=== PATIENT | male | born 1980 | race Caucasian/White ===

== ENCOUNTER 2017-08-11 06:37 | Day surgery (SDC) | payer OTHER ==
[~2017-08-11 06:37] MED LIST: Buffered Lidocaine 0.9% SYRIN* 5 ML/SYR SYRINGE INTRADERM ONE
[2017-08-11] MEDS ORDERED: Clindamycin 900 MG IVPREMIX(* 900 MG/50 ML SDV IV ONE (06:45)
[2017-08-11] MEDS ORDERED: Buffered Lidocaine 0.9% SYRIN* 5 ML/SYR SYRINGE ONE (06:45)
[2017-08-11] MEDS ORDERED: Bupivacaine 0.5% SDV PF* 30 ML VIAL ONE (07:14)
[2017-08-11] MEDS ORDERED: Midazolam* 1 MG/ML 2 ML VIAL (2 MG) ONE (07:33)
[2017-08-11] MEDS ORDERED: fentaNYL* 50 MCG/ML 2 ML VIAL (100 MCG VIAL) ONE (07:33)
[2017-08-11] MEDS ORDERED: Propofol* 10 MG/ML 20 ML BTL IV PUSH ONE (08:06)
[2017-08-11] MEDS ORDERED: Ibuprofen TAB* 600 MG PO PRN (08:27)
[2017-08-11] MEDS ORDERED: Acetaminophen TAB* 325 MG PO PRN (08:27)
[2017-08-11] MEDS ORDERED: oxyCODONE/Acetamin 5/325 MG* TAB PO PRN (08:27)
[2017-08-11] MEDS ORDERED: Ibuprofen TAB* 600 MG ONE (08:38)
[2017-08-11] MEDS ORDERED: oxyCODONE/Acetamin 5/325 MG* TAB ONE (08:38)
[2017-08-11 08:53] VITALS: BP 122/98
--- NOTE | 2017-08-11 20:53 | OP ---
DATE OF OPERATION: 08/11/17 [facility] [place] [facility] DATE OF : 80 SURGEON: Idris Lamb MD ASSISTANTS: 1. LILLY Bear 2. LILLY Hankins ANESTHESIOLOGIST: Awilda Estrada MD ANESTHESIA: MAC with local anesthetic. PRE-OP DIAGNOSIS: Painful, retained hardware, right ankle. 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 OPERATIVE PROCEDURE: Removal of the implant, deep, from right ankle. Stress fluoroscopy examination performed by surgeon under anesthesia. INDICATIONS: Kenney had a prior ankle ORIF performed elsewhere in March of 2017. He has had pain at the site of his syndesmotic screw heads and feels that they have been restricting his motion and progression. Both nonoperative and operative treatment alternatives were reviewed further, the nature, and risks of surgery reviewed in careful detail in the office as well as in the preoperative holding area. Our discussions regarding the risks of surgery included, but were not limited to, infection, wound problems, nerve injury, neuroma, RSD, persistent symptoms, need for further surgery, and even a remote chance of catastrophic complication including loss of limb. Additionally, we discussed that there is syndesmotic instability. This could be partially the source of the pain and removing the hardware might not solve his problems. We did discuss, however, that we would see how he does with just removal of hardware even if there is some evidence of syndesmotic instability. ESTIMATED BLOOD LOSS: Minimal. TOURNIQUET TIME: 5 minutes with an Esmarch calf tourniquet. SPECIMENS: None. STATUS: Stable from the operating room to the PACU DESCRIPTION OF PROCEDURE: The patient was seen in the preoperative holding unit and informed consent was obtained. The appropriate extremity was marked. The patient was then brought to the operating room and carefully positioned on the operating room table. Anesthesia was induced. All bony prominences were padded with great care. A chlorhexidine based pre-scrub was performed followed by ChloraPrep prep and draped in standard sterile fashion. Surgical safety pause was then conducted in which we confirmed the appropriate patient, extremity, planned procedure, availability of equipment, indication, and administration of prophylactic antibiotics and DVT prophylaxis in the form of compression boot on the nonsurgical extremity. We began by identifying the screws fluoroscopically. A calf Esmarch tourniquet was placed. Two small incisions were made over the screw heads utilizing fluoroscopy. Blunt dissection was used to get down to the screw heads, which were then exposed. The hardware was identified and removed using screw diesel pile driver operator without difficulty. A fluoroscopic image was then obtained demonstrating removal of the hardware. I then performed a stress fluoroscopic examination with external rotation stress, which did show some subtle widening of the medial ankle mortise, but no gross instability. At this point, we copiously irrigated the area and closed in layers meticulously using 3-0 Monocryl and 3-0 nylon. Sterile dressing was then applied. He was awakened from the anesthesia and transferred to recovery room in stable condition. There were no complications. All needle and sponge counts were correct at the end of the case. ATTESTATION: I attest that I was present, scrubbed and performed the entire procedure myself. POSTOPERATIVE PLAN: Kenney will remain nonweightbearing for the next 2 weeks with crutches. He was given a soft dressing as the patient did not want him to have a splint or boot. Followup will be in 2 weeks for likely suture removal and Steri-Strip application, and progression of weightbearing. [id number]/[facility] #: [id number] JIGNA
--- NOTE | 2017-08-16 13:16 | RAD ---
CPT II Codes: 6045F INDICATION: Right ankle hardware removal TECHNIQUE: Intraoperative fluoroscopy was provided during removal of 2 medullary screws. FINDINGS: 7 spot films depict removal of 2 medullary screws spanning the distal right tibia and fibula. The distal tibial medullary screws remain unchanged in position.. Fluoroscopy time: 12.4 seconds IMPRESSION: As above.
== END 2017-08-11 09:16 | disposition home or self-care (01) ==
LOC: OR 06:37
PROVIDERS: ATTEND Orthopaedic Surgery
DX: T84.84XA Pain due to internal orthopedic prosthetic devices, implants and grafts, initial encounter (principal); Y79.2 Prosthetic and other implants, materials and accessory orthopedic devices associated with adverse incidents; F17.210 Nicotine dependence, cigarettes, uncomplicated; Z88.0 Allergy status to penicillin; S82.861D Displaced Maisonneuve's fracture of right leg, subsequent encounter for closed fracture with routine healing
CPT/HCPCS: 76000; 88300; A9270-GY; J2250; J2704; J3010